=== PATIENT | male | born 1955 | race Caucasian/White ===

== ENCOUNTER 2020-09-20 19:06 | Emergency (ER) | payer MEDICAID ==
[~2020-09-20] VITALS: Ht 172.7 cm; Wt 74.8 kg
[2020-09-20 19:25] VITALS: BP_SYST 128
--- NOTE | 2020-09-20 19:25 | NUR ---
PT TO BED 2 FOR EVALUATION
--- NOTE | 2020-09-20 19:27 | NUR ---
ER Dr. Mccullough at bedside examining patient.
--- NOTE | 2020-09-20 19:38 | NUR ---
Blood for labwork drawn from hook up. Patient tolerated well.
--- NOTE | 2020-09-20 19:40 | NUR ---
PT A&O X4 FROM HOME C/O LEFT SIDED ABDOMINAL PAIN THAT STARTED THIS MORNING AROUND 8AM AND HAS BEEN CONSTANT STABBING PAIN. PT UNABLE TO DRINK FLUIDS TODAY STATING IT INDUCES NAUSEA. PT REPORTS HE TOKO OXYCODONE PRIOR TO ARRIVAL. PT DENIES VOMITING, FEVER, SOB, CP. PT REPORTS HX OF KIDNEY STONES.
--- NOTE | 2020-09-20 19:43 | NUR ---
Patient transported to radiology via wheelchair, accompanied by tech.
[2020-09-20 19:53] LABS: BASOPHILS # (AUTO) 0.1 K/uL (0.0-0.2); BASOPHILS % (AUTO) 0.5 % (0.0-2.0); EOSINOPHILS % (AUTO) 0.1 % (0.0-4.0); HEMATOCRIT 52.4 % (36-54); HEMOGLOBIN 17.7 g/dL (14.0-18.0); LYMPHOCYTES # (AUTO) 1.3 K/uL (1.0-5.5); LYMPHOCYTES % (AUTO) 11.1 % (20.5-51.5); MEAN CORPUSCULAR HEMOGLOBIN 32 pg (27-31); MEAN CORPUSCULAR HGB CONC 34 % (32-36); MEAN CORPUSCULAR VOLUME 95 fL (79.0-98.0); MONOCYTES # (AUTO) 0.9 K/uL (0.0-1.0); NEUTROPHILS # (AUTO) 9.1 K/uL (1.8-7.7); NEUTROPHILS % (AUTO) 80.3 % (40.0-70.0); PLATELET COUNT (AUTO) 175 K/uL (130-430); RED BLOOD CELL COUNT(AUTO) 5.51 MIL/uL (4.2-6.2); RED CELL DISTRIBUTION WIDTH 13.8 % (9.0-15.0); WHITE BLOOD COUNT (AUTO) 11.3 K/uL (4.8-10.8)
--- NOTE | 2020-09-20 19:55 | NUR ---
Returned from radiology, back to [facility].
[2020-09-20] MEDS: KETOROLAC TROMETHAMINE 30 MG VIAL IVP ONE (20:05)
[2020-09-20] MEDS: ONDANSETRON HCL 4 MG/2 ML VIAL IVP ONE (20:05)
[2020-09-20] MEDS: NACL 0.9% 1,000 ML IV ONE (20:05)
--- NOTE | 2020-09-20 20:05 | NUR ---
# 20 gauge angiocath placed to left ac. Use of asceptic technique. Opsite placed over site. Blood return noted. Flushed with 10 cc of normal saline. No evidence of infiltration noted. Patient tolerated well.
[2020-09-20 20:11] LABS: ALBUMIN 3.7 g/dL (3.4-4.8); CREATININE 1.33 mg/dL (0.55-1.30); POTASSIUM 4.2 mmol/L (3.5-5.1); TOTAL BILIRUBIN 0.7 mg/dL (0.0-1.0)
--- NOTE | 2020-09-20 20:58 | NUR ---
PATIENT REPORTS PAIN HAS DISAPPEARED. RATES PAIN 0/10.
--- NOTE | 2020-09-20 21:32 | NUR ---
PT UNABLE TO GIVE URINE AT THIS TIME. PT STATES HE HAS NOT BEEN ABLE TO URINATE ALL DAY. DRINKING WATER MAKES PT NAUSEOUS SO HE HAS NOT BEEN DRINKING FLUIDS.
--- NOTE | 2020-09-20 21:57 | NUR ---
DR. CONTRERAS AT BEDSIDE SPEAKING WITH PATIENT.
[2020-09-20] MEDS ORDERED: IBUP-1971 PO (22:01)
[2020-09-20] MEDS ORDERED: TRAM50TA2 PO (22:02)
[2020-09-20] MEDS ORDERED: ONDA4TAB5 PO (22:02)
--- NOTE | 2020-09-20 22:53 | NUR ---
URINE COLLECTED AFTER PATIENT USED URINAL AND SENT TO LAB. PT REPORTS NO PAIN.
--- NOTE | 2020-09-20 23:00 | NUR ---
Patient given written and verbal discharge instructions and verbalizes understanding. ER MD discussed with patient the results and treatment provided. Patient in stable condition. ID arm band removed. IV catheter removed intact and dressing applied, no active bleeding. Rx of TRAMADOL, MOTRIN, AND ZOFRAN given. Patient educated on pain management and to follow up with PMD. Pain Scale 0/10. Opportunity for questions provided and answered. Medication side effect fact sheet provided.
[2020-09-20 23:01] VITALS: BP_SYST 112
[2020-09-20 23:02] LABS: BILIRUBIN,URINE NEGATIVE (NEGATIVE); BLOOD, URINE 3+ (NEGATIVE); COLOR,URINE YELLOW (YELLOW); GLUCOSE,URINE NEGATIVE (NEGATIVE); KETONES,URINE TRACE (NEGATIVE); LEUKOCYTE ESTERASE ,URINE NEGATIVE (NEGATIVE); NITRITE, URINE NEGATIVE (NEGATIVE); PROTEIN URINE TRACE (NEGATIVE); UROBILINOGEN,URINE 0.2 (0.2-1.0)
[2020-09-20 23:08] LABS: CLARITY/URINE SLIGHTLY CLOUDY (CLEAR)
[2020-09-20 23:23] LABS: BACTERIA,URINE FEW /HPF (None Seen); RBC,URINE 20-50 /HPF (0-3); WBC,URINE 0-3 /HPF (0-3)
== END 2020-09-20 23:01 | disposition home or self-care (01) ==
LOC: SED 19:06
DX: N20.0 Calculus of kidney (principal); R03.0 Elevated blood-pressure reading, without diagnosis of hypertension; F12.90 Cannabis use, unspecified, uncomplicated
CPT/HCPCS: 36415; 74176; 76376; 80053; 81000; 85025; 96361; 96374; 96375; 99284; J1885; J2405; J7030